=== PATIENT | female | born 1985 | race African-American/Black ===

== ENCOUNTER 2017-10-26 13:49 | Emergency (ER) | payer SELFPAY ==
[~2017-10-26] VITALS: Ht 162.6 cm; Wt 128.6 kg
[2017-10-26 14:05] VITALS: Ht 162.6 cm; Wt 128.6 kg
[2017-10-26] MEDS ORDERED: AMOXICILLIN875 MG PO (15:40)
[2017-10-26 16:34] VITALS: BP 127/88
== END 2017-10-26 16:34 | disposition home or self-care (01) ==
LOC: D.ER 13:49
DX: J02.9 Acute pharyngitis, unspecified (principal); J30.9 Allergic rhinitis, unspecified